=== PATIENT | female | born 1970 | race Caucasian/White ===

== ENCOUNTER 2017-07-10 18:15 | Emergency (ER) | payer SELFPAY ==
[~2017-07-10] VITALS: Ht 149.9 cm; Wt 61.2 kg
[2017-07-10 20:35] LABS: UA SPECIFIC GRAVITY 1.015 (1.005-1.035); microscopic required? YES; urine erythrocyte NEGATIVE (NEGATIVE)
[2017-07-10 21:22] LABS: BASOPHIL % 0.2 % (0-2); PLATELET COUNT 353 x10^3mcL (130-400); RED CELL DISTRIBUTION WIDTH 13.5 % (11.5-14.5)
[2017-07-10 21:29] LABS: CALCIUM 8.7 mg/dL (8.5-10.1); CARBON DIOXIDE 24.9 mmol/L (21-32); CHLORIDE SERUM 100 mmol/L (98-107); CREATININE SERUM 0.5 mg/dL (0.6-1.0); GFR1 > 60 mL/min; GLUCOSE SERUM 262 mg/dL (74-106); POTASSIUM SERUM 3.6 mmol/L (3.5-5.1); SODIUM SERUM 136 mmol/L (136-145)
[2017-07-10 21:34] LABS: ALBUMIN 3.4 g/dL (3.4-5.0); ALKALINE PHOSPHATASE 227 U/L (46-116); ALT/SGPT 43 U/L (14-59); AMYLASE 57 U/L (25-115); AST/SGOT 23 U/L (15-37); BILIRUBIN TOTAL 0.3 mg/dL (0.20-1.00); LIPASE 179 IU/L (73-393)
[2017-07-11 00:59] VITALS: BP 111/63
== END 2017-07-10 22:45 | disposition home or self-care (01) ==
LOC: ED 18:15
PROVIDERS: Emergency Medicine
DX: K59.00 Constipation, unspecified (principal)
CPT/HCPCS: 36415; 82962; J1815; J2270; Q0162

== ENCOUNTER 2017-08-31 09:10 | Emergency (ER) | payer SELFPAY ==
[2017-08-31 10:48] LABS: microscopic required? NO
[2017-08-31 10:56] LABS: urine erythrocyte NEGATIVE (NEGATIVE)
[2017-08-31 10:58] LABS: BASOPHIL % 0.2 % (0-2); PLATELET COUNT 337 x10^3mcL (130-400); RED CELL DISTRIBUTION WIDTH 13.9 % (11.5-14.5)
[2017-08-31 11:06] LABS: AMPHETAMINE QUAL UR NONE DETECTED (NEG <=1000)
[2017-08-31 11:17] LABS: CHLORIDE SERUM 100 mmol/L (98-107); CREATININE SERUM 0.7 mg/dL (0.6-1.0); GFR1 > 60 mL/min; GLUCOSE SERUM 326 mg/dL (74-106); SODIUM SERUM 135 mmol/L (136-145)
[2017-08-31 11:21] LABS: ALBUMIN 3.5 g/dL (3.4-5.0); ALKALINE PHOSPHATASE 218 U/L (46-116); ALT/SGPT 41 U/L (14-59); AMYLASE 60 U/L (25-115); AST/SGOT 26 U/L (15-37); BILIRUBIN TOTAL 0.36 mg/dL (0.20-1.00); LIPASE 189 IU/L (73-393)
[2017-08-31 11:22] LABS: TOTAL PROTEIN, SERUM 8.6 g/dL (6.4-8.2)
[2017-08-31 13:09] VITALS: BP 142/96
== END 2017-08-31 13:09 | disposition home or self-care (01) ==
LOC: ED 09:10
PROVIDERS: Emergency Medicine
DX: R10.12 Left upper quadrant pain (principal); R07.89 Other chest pain; E11.9 Type 2 diabetes mellitus without complications
CPT/HCPCS: J1885; J3490; Q9967